=== PATIENT | female | born 1960 | race Caucasian/White ===

== ENCOUNTER 2021-02-20 12:38 | Emergency (ER) | payer MEDICARE, OTHER ==
--- NOTE | 2021-02-20 13:19 | EDM.PDOC ---
ED HPI GENERAL MEDICAL PROBLEM - General Chief Complaint: Back Pain or Injury Stated Complaint: UPPER BACK PAIN Time Seen by Provider: 02/20/21 13:00 Source of Information: Reports: Patient, RN Notes Reviewed History Limitations: Reports: No Limitations - History of Present Illness INITIAL COMMENTS - FREE TEXT/NARRATIVE: Patient is a 60-year-old female presenting to the emergency department for evaluation of upper back pain and tingling to her bilateral arms. She reports she was at [facility] and was moving some boxes to get a better look at a small refrigerator when a box fell off the shelf. Reports that hit her directly on the top of her head. She did not lose consciousness. Denies any headache, vision changes, or nausea at this time. She complains of upper back pain between her shoulder blades as well as some minor tenderness in her neck. She has tingling in her bilateral arms. Denies history of chronic back pain. She has not taken any medications for treatment. Upper Back Pain Score (Numeric/FACES): 5 - Related Data Allergies Allergy/AdvReac Type Severity Reaction Status Date / Time No Known Allergies Allergy Verified 02/20/21 12:58 Home Meds: Home Meds Cyclobenzaprine [Flexeril] 10 mg PO TID PRN #10 tab 02/20/21 [Rx] Levothyroxine [Synthroid] 1 tab PO DAILY 02/20/21 [History] Lidocaine 5% 35.44 gm TD DAILY PRN 02/20/21 [History] Lovastatin 40 mg PO DAILY 02/20/21 [History] Melatonin 5 mg PO BEDTIME 02/20/21 [History] Non-Formulary Medication [NF Drug] 5 mg PO DAILY 02/20/21 [History] Potassium Chloride 20 meq PO DAILY 02/20/21 [History] Spironolactone [Aldactone] 25 mg PO DAILY 02/20/21 [History] estradioL [Climara] 1 each TD WEEKLY 02/20/21 [History] lisinopriL [Lisinopril] 5 mg PO DAILY 02/20/21 [History] Past Medical History Cardiovascular History: Reports: High Cholesterol - Past Surgical History GI Surgical History: Reports: Appendectomy, Other (See Below) Other GI Surgeries/Procedures: Abd Surgery--"twisted gut" Female Surgical History: Reports: Breast Implant, Hysterectomy Musculoskeletal Surgical History: Reports: Other (See Below) Other Musculoskeletal Surgeries/Procedures:: Neck Lift, Knee Surgery to remove cactus Social & Family History - Tobacco Use Tobacco Use Status *Q: Never Tobacco User - Caffeine Use Caffeine Use: Reports: Coffee - Recreational Drug Use Recreational Drug Use: No ED ROS GENERAL - Review of Systems Review Of Systems: Comprehensive ROS is negative, except as noted in HPI. ED EXAM, UPPER BACK/NECK PAIN - Physical Exam Exam: See Below Exam Limited By: No Limitations General Appearance: Alert, WD/WN, No Apparent Distress Neck Exam: Full Range of Motion, Normal Alignment, Normal Inspection, Tender Midline (mild) Cardiovascular/Respiratory: Regular Rate, Rhythm, No M/R/G, Normal Peripheral Pulses, No JVD, Normal Breath Sounds, No Respiratory Distress Back Exam: Normal Inspection, Full Range of Motion, Other (Generalized tenderness to upper back between scapula.) Neurologic: senior warehouse clerk II-XII nml As Tested, No Motor/Sensory Deficits, Alert, Normal Mood/Affect, Oriented x 3 Psychiatric: Normal Affect, Normal Mood Skin Exam: Normal Color, Warm/Dry Course - Vital Signs Last Recorded V/S: Last Vital Signs Temp 97.3 F 02/20/21 12:56 Pulse 60 02/20/21 12:56 Resp 16 02/20/21 12:56 BP 137/74 02/20/21 12:56 Pulse Ox 100 02/20/21 12:56 - Re-Assessments/Exams Free Text/Narrative Re-Assessment/Exam: 02/20/21 14:31 X-ray of the cervical and thoracic spine show no acute abnormalities. I will write prescription for Flexeril for patient, however she does not think she will need at this point. She will pick it up if she decides she needs it. Otherwise recommend ibuprofen. Discussed return precautions. Discharge instructions as documented. Departure - Departure Time of Disposition: 14:31 Disposition: Home, Self-Care 01 Condition: Good Clinical Impression: Cervical radiculopathy Back pain Qualifiers: Back pain location: thoracic back pain Chronicity: acute Back pain laterality: midline Qualified Code(s): M54.6 - Pain in thoracic spine - Discharge Information *PRESCRIPTION DRUG MONITORING PROGRAM REVIEWED*: No *COPY OF PRESCRIPTION DRUG MONITORING REPORT IN PATIENT CASSANDRA: No Prescriptions: Cyclobenzaprine [Flexeril] 10 mg PO TID PRN #10 tab PRN Reason: Muscle Spasm Instructions: Acute Back Pain, Adult, Cervical Radiculopathy, [id number] Referrals: Tobi Yadav MD [Primary Care Provider] - Forms: ED Department Discharge Additional Instructions: Use Tylenol and ibuprofen routinely for discomfort. Apply heat and/or ice over the area of discomfort. Prescription has been sent for Flexeril which is a muscle relaxer. Take this as needed for muscle spasms. If symptoms fail to improve over the next few days or you experience another new or worsening symptoms, please either follow-up in the clinic or return to the emergency department. Sepsis Event Note (ED) - Evaluation Sepsis Screening Result: No Definite Risk - Focused Exam Vital Signs: Vital Signs Temp Pulse Resp BP Pulse Ox 02/20/21 12:56 97.3 F 60 16 137/74 100
--- NOTE | 2021-02-20 14:12 | CR ---
Cervical spine: AP, lateral and odontoid views of the cervical spine were obtained. Comparison: No prior cervical spine imaging is available. Moderate disc space narrowing is seen at C5-6. Minimal posterior spurring is seen at C5-6. Minimal spurring is seen within the uncovertebral joints at C5-6. Other disc spaces are maintained. Vertebral body heights are maintained. Prevertebral soft tissues are normal. Impression: 1. Degenerative change at C5-6 as described above. Diagnostic code #2
--- NOTE | 2021-02-20 14:15 | CR ---
Thoracic spine: AP, lateral and swimmer's views of the thoracic spine were obtained. Comparison: No prior thoracic spine imaging is available. Vertebral body heights are maintained. Disc spaces are fairly well preserved. Very minimal anterior osteophytes are seen. Pedicles are intact. No subluxation or fracture seen. Surgical clips are seen from prior cholecystectomy. Impression: 1. Minimal degenerative change. 2. Prior cholecystectomy. Diagnostic code #2
== END 2021-02-20 14:47 | disposition home or self-care (01) ==
LOC: JD.ED 12:38
DX: M54.6 Pain in thoracic spine (principal); M54.12 Radiculopathy, cervical region; E78.00 Pure hypercholesterolemia, unspecified; Z79.899 Other long term (current) drug therapy
CPT/HCPCS: 72040; 72040-26; 72072; 72072-26; 99283; 99284-25

== ENCOUNTER 2021-07-19 13:00 | Emergency (ER) | payer OTHER, MEDICARE ==
[2021-07-19] MEDS ORDERED: Sodium Chloride 0.9% 10 ML Syringe FLUSH PRN (13:50)
== END 2021-07-19 17:29 | disposition home or self-care (01) ==
LOC: JD.ED 13:00
DX: R20.2 Paresthesia of skin (principal); E87.1 Hypo-osmolality and hyponatremia; E78.00 Pure hypercholesterolemia, unspecified; Z79.899 Other long term (current) drug therapy
CPT/HCPCS: 36415; 70450; 70551; 71045; 80053; 83735; 84484; 85025; 85379; 85610; 85730; 86140; 93005; 99284; J3490

== ENCOUNTER 2023-07-25 14:30 | Emergency (ER) | payer MEDICARE, OTHER ==
[2023-07-25] MEDS: Famotidine 20 MG/2 ML SDV IVPUSH ONE (14:50)
[2023-07-25] MEDS: methylPREDNISolone Sodium Succinate 125 MG/2 ML SDV IVPUSH ONE (14:50)
[2023-07-25] MEDS ORDERED: amLODIPine 5 MG Tab PO ONE (17:05)
== END 2023-07-25 17:05 ==
LOC: JD.ED 14:30
DX: T78.40XA Allergy, unspecified, initial encounter (principal); E78.00 Pure hypercholesterolemia, unspecified; Z90.49 Acquired absence of other specified parts of digestive tract; Z90.710 Acquired absence of both cervix and uterus; Z79.899 Other long term (current) drug therapy; Z88.2 Allergy status to sulfonamides; Z88.1 Allergy status to other antibiotic agents
CPT/HCPCS: 96374; 96375; 99284-25; J2930; J3490